=== PATIENT | female | born 1970 | race Caucasian/White ===

== ENCOUNTER → 2016-11-23 | Outpatient (CLI) | payer BC, OTHER ==
[~2016-11-23] MED LIST: ANT125 PO; DESO1TAB7 PO; DOXY100C2 PO; OMEP20CA9 PO; RANI300T2 PO
[2016-11-23 10:02] LABS: BASO % 0.6 %; BASO ABS # 0.03 K/uL (0-0.2); COMPLETE YES; EOS % 2.2 %; HEMATOCRIT 35.5 % (37-47); LYMPH % 24.4 %; LYMPH ABS # 1.33 K/uL (1.2-3.4); MEAN CELL VOLUME 90.3 fL (80-100); MEAN CORPUSCULAR HGB CONC 33.2 g/dl (32-36); MEAN PLATELET VOLUME 10.8 fL (7.4-10.4); MONO % 7.7 %; NEUT % 65.1 %; PLATELET COUNT 227 K/uL (130-400); RED BLOOD COUNT 3.93 M/uL (4.2-5.4); WHITE BLOOD COUNT 5.44 K/uL (4.8-10.8)
[2016-11-23 10:29] LABS: BLOOD UREA NITROGEN 15 mg/dl (7-18); BUN/CREATININE RATIO 23.2 (10-20); C-REACTIVE PROTEIN < 0.29 mg/dl (0-0.29); CALCIUM 8.3 mg/dl (8.5-10.1); CARBON DIOXIDE 26 mmol/L (21-32); CHLORIDE 103 mmol/L (98-107); CREATININE 0.63 mg/dl (0.60-1.20); GLUCOSE 82 mg/dl (70-99); POTASSIUM 3.5 mmol/L (3.5-5.1); SODIUM 139 mmol/L (136-145); URIC ACID 2.7 mg/dl (2.6-7.2)
[2016-11-23 10:40] LABS: ALB/GLOB RATIO 1.2 (0.9-2); ALKALINE PHOSPHATASE 63 U/L (45-117); ALT/SGPT 22 U/L (12-78); AST/SGOT 19 U/L (15-37); RHEUMATOID FACTOR < 10.0 U/mL (0-15)
[2016-11-23 12:57] LABS: LYME DISEASE AB IGG NEG (NEG); LYME DISEASE AB IGM EQUIVOCAL (NEG)
[2016-11-24 12:53] LABS: 18KDIGG BAND NONREACTIVE (NONREACTIVE); 23KDIGG BAND NONREACTIVE (NONREACTIVE); 23KDIGM BAND NONREACTIVE (NONREACTIVE); 28KDIGG BAND NONREACTIVE (NONREACTIVE); 30KDIGG BAND NONREACTIVE (NONREACTIVE); 39KDIGG BAND NONREACTIVE (NONREACTIVE); 39KDIGM BAND NONREACTIVE (NONREACTIVE); 41KDIGG BAND NONREACTIVE (NONREACTIVE); 41KDIGM BAND NONREACTIVE (NONREACTIVE); 45KDIGG BAND NONREACTIVE (NONREACTIVE); 58KDIGG BAND NONREACTIVE (NONREACTIVE); 66KDIGG BAND NONREACTIVE (NONREACTIVE); 93KDIGG BAND NONREACTIVE (NONREACTIVE)
[2016-11-25 01:20] LABS: CYCLIC CITRULLINATED PEPT IGG <16 UNITS (<20)
--- NOTE | 2016-11-29 06:43 | CODING QUERY MEDICAL NECESSITY ---
: 1970 SUPPORTING DIAGNOSIS NEEDED A supporting diagnosis is required for the test/procedure performed on this patient in order for us to be reimbursed by the patient's insurance. Please provide a supporting diagnosis for the following test/procedure listed below next to the test name along with your signature. *If there is no additional diagnosis for this patient that would support the following test/procedure please document that below next to the test/procedure. Test(s)/Procedure(s) that require a supporting diagnosis: DOS: 11/23/16 * Vitamin D, 25-Hydroxy DIAGNOSIS: Provider Signature: Date: Thank you Ely Fitzgerald [facility] Information Management Once completed, please kindly fax back to [phone] For questions please call [phone]
== END | disposition home or self-care (01) ==
LOC: C.LAB1850 08:56
PROVIDERS: ATTEND Family Medicine
DX: R41.3 Other amnesia (principal); M62.89 Other specified disorders of muscle; E55.9 Vitamin D deficiency, unspecified

== ENCOUNTER → 2016-12-04 | Outpatient (CLI) | payer BC, OTHER | END | disposition home or self-care (01) | LOC: C.PAPS 10:32 | PROVIDERS: ATTEND Obstetrics & Gynecology | DX: Z01.419 Encounter for gynecological examination (general) (routine) without abnormal findings (principal) ==

== ENCOUNTER → 2017-03-13 | Outpatient (CLI) | payer BC, OTHER ==
--- NOTE | 2017-03-13 13:48 | DIAGNOSTIC IMAGING REPORT ---
MRI OF THE CERVICAL SPINE WITHOUT IV CONTRAST CLINICAL HISTORY: Cervical radiculopathy. COMPARISON STUDY: CT scan of cervical spine dated 08/10/2014. TECHNIQUE: MRI of the cervical spine is performed utilizing various T1 and T2-weighted sequences in the axial and sagittal planes. IV contrast was not administered for this examination. FINDINGS: Cervical spine: Vertebral body height and alignment are maintained throughout the cervical spine. Normal marrow signal intensity is preserved throughout the visualized bony structures. The atlantodental articulation appears preserved. The spinous processes are intact. Minimal degenerative endplate edema is noted at C5-C6. No destructive bony lesion is seen. Intervertebral discs: Degenerative disc desiccation is seen throughout the cervical spine. No significant loss of height is identified. Spinal cord: The cervical spinal cord is normal in morphology and signal intensity. C2-C3: Unremarkable. C3-C4: Unremarkable. C4-C5: Unremarkable. C5-C6: A posterior disc osteophyte complex eccentric to the right abuts the ventral cord. In conjunction with mild facet arthropathy this causes moderate to severe right neural foraminal stenosis. The left neural foramen is clear. C6-C7: A posterior disc osteophyte complex slightly eccentric to the left abuts the ventral cord. Uncovertebral arthropathy causes minimal left-sided neural foraminal stenosis. C7-T1: Unremarkable. Soft tissues: The prevertebral and paraspinous soft tissues are normal as visualized. Brain parenchyma: Partially imaged brain parenchyma is grossly normal in appearance. IMPRESSION: 1. Cervical spondylosis as above, greatest at C5-C6 and C6-C7. See discussion for detailed level by level analysis. 2. No destructive bony process is seen. Minimal degenerative endplate edema is identified at C5-C6. 3. The cervical spinal cord is normal in morphology and signal intensity. Dictated: 03/13/2017 1:10 PM Transcribed: 03/13/2017 1:47 PM Cong Electronically signed by: Nirmal Salomon M.D. 03/13/2017 1:59 PM Dictated Date/Time: 03/13/2017 1:10 PM
== END | disposition home or self-care (01) ==
LOC: C.MRI 12:01
PROVIDERS: ATTEND Physician Assistant
DX: M47.22 Other spondylosis with radiculopathy, cervical region (principal)

== ENCOUNTER → 2017-06-20 | Outpatient (CLI) | payer BC, OTHER | END | disposition home or self-care (01) | LOC: C.PATHSPEC 11:09 | PROVIDERS: ATTEND Obstetrics & Gynecology | DX: A63.0 Anogenital (venereal) warts (principal); R87.622 Low grade squamous intraepithelial lesion on cytologic smear of vagina (LGSIL) ==

== ENCOUNTER → 2017-12-06 | Outpatient (CLI) | payer OTHER ==
[2017-12-06 15:13] LABS: BASO % 0.4 %; BASO ABS # 0.02 K/uL (0-0.2); COMPLETE YES; EOS % 2.3 %; EOS ABS # 0.13 K/uL (0-0.5); HEMATOCRIT 36.1 % (37-47); HEMOGLOBIN 12.5 g/dL (12.0-16.0); IG# 0.01 K/uL (0.00-0.02); IG% 0.2 %; LYMPH % 31.8 %; LYMPH ABS # 1.76 K/uL (1.2-3.4); MEAN CELL VOLUME 92.3 fL (80-100); MEAN CORPUSCULAR HGB CONC 34.6 g/dl (32-36); MEAN PLATELET VOLUME 10.3 fL (7.4-10.4); MONO % 7.9 %; MONO ABS # 0.44 K/uL (0.11-0.59); NEUT % 57.4 %; NEUT ABS # 3.18 K/uL (1.4-6.5); PLATELET COUNT 165 K/uL (130-400); RED BLOOD COUNT 3.91 M/uL (4.2-5.4); RED CELL DISTRIBUTION WIDTH CV 12.8 % (11.5-14.5); RED CELL DISTRIBUTION WIDTH SD 43.1 fL (36.4-46.3); WHITE BLOOD COUNT 5.54 K/uL (4.8-10.8)
[2017-12-06 15:40] LABS: ALBUMIN 3.9 gm/dl (3.4-5.0); ALT/SGPT 24 U/L (12-78); AST/SGOT 14 U/L (15-37); BLOOD UREA NITROGEN 14 mg/dl (7-18); BUN/CREATININE RATIO 19.9 (10-20); CALCIUM 8.5 mg/dl (8.5-10.1); CARBON DIOXIDE 27 mmol/L (21-32); CHLORIDE 104 mmol/L (98-107); EstGFR CKD-E AfrAm 118.7; EstGFR CKD-E NON AfrAm 102.5; POTASSIUM 3.4 mmol/L (3.5-5.1); SODIUM 136 mmol/L (136-145)
[2017-12-06 15:40] LABS: GLUCOSE 87 mg/dl (70-99)
[2017-12-06 15:50] LABS: ALB/GLOB RATIO 1.1 (0.9-2); ALKALINE PHOSPHATASE 67 U/L (45-117); TOTAL PROTEIN 7.6 gm/dl (6.4-8.2)
[2017-12-06 16:02] LABS: HEPATITIS B SURFACE AG NEG (NEG)
[2017-12-06 16:30] LABS: HEP C IGG 13 YRS+OLDER_RFLX NEG (NEG)
[2017-12-06 18:16] LABS: LYME DISEASE AB IGG NEG (NEG)
[2017-12-06 19:30] LABS: LYME DISEASE AB IGM EQUIVOCAL (NEG)
== END | disposition home or self-care (01) ==
LOC: C.LAB1850 14:38
DX: Z00.00 Encounter for general adult medical examination without abnormal findings (principal); R53.83 Other fatigue; E55.9 Vitamin D deficiency, unspecified

== ENCOUNTER → 2017-12-06 | Outpatient (CLI) | payer OTHER | END | disposition home or self-care (01) | LOC: C.PAPS 15:37 | PROVIDERS: ATTEND Obstetrics & Gynecology | DX: Z12.4 Encounter for screening for malignant neoplasm of cervix (principal); Z11.51 Encounter for screening for human papillomavirus (HPV) ==

== ENCOUNTER → 2017-12-25 | Outpatient (CLI) | payer OTHER | END | disposition home or self-care (01) | LOC: C.PATHSPEC 15:52 | PROVIDERS: ATTEND Obstetrics & Gynecology | DX: N87.0 Mild cervical dysplasia (principal) ==

== ENCOUNTER → 2018-01-18 | Outpatient (CLI) | payer OTHER ==
[~2018-01-18] MED LIST changes: +SINCALIDE INJ 1.4 MCG in SODIUM CHLORIDE 0.9% 100ML 100 ML IV SCH
--- NOTE | 2018-01-18 10:13 | DIAGNOSTIC IMAGING REPORT ---
ABDOMEN COMPLETE (US) HISTORY: Pain. Nausea. ABD PAIN. COMPARISON: None. FINDINGS: Pancreas: The pancreas demonstrates a normal echotexture. Liver: Unremarkable. Gallbladder: No gallbladder wall thickening. No gallstones. CBD: 4 mm Kidneys: No hydronephrosis. Spleen: Normal in size. Aorta: Normal in caliber. IVC: Patent. IMPRESSION: No significant abnormality identified within the within the abdomen. The above report was generated using voice recognition software. It may contain grammatical, syntax or spelling errors. Electronically signed by: Guevara Felix M.D. 01/18/2018 10:12 AM Dictated Date/Time: 01/18/2018 10:11 AM
--- NOTE | 2018-01-18 12:28 | DIAGNOSTIC IMAGING REPORT ---
NUCLEAR MEDICINE HEPATOBILIARY SCAN WITH GALLBLADDER EJECTION FRACTION CLINICAL HISTORY: Abdominal pain. COMPARISON: Abdominal ultrasound January 18, 2018. TECHNIQUE: 5.4 mCi of technetium 99m Choletec IV was injected at 10:15 AM on January 18, 2018. Immediately following injection, imaging of the abdomen was carried out for 60 minutes in the anterior projection. At this time, 1.4 mcg of Sincalide was injected IV as per protocol. Imaging was performed for an additional 45 minutes to estimate a gallbladder ejection fraction. FINDINGS: Hepatic uptake of radiotracer is prompt and homogeneous. Activity is first identified within the common bile duct at 15 minutes. Gallbladder activity is first noted at 15 minutes. Small bowel activity is first noted at 25 minutes. Following injection of sincalide, normal gallbladder emptying was noted within ejection fraction of 80%. Normal is greater than 30-35%. IMPRESSION: 1. Normal hepatobiliary scan. No evidence for acute or chronic cholecystitis. 2. Normal gallbladder ejection fraction of 80%. Electronically signed by: Hank De La Garza M.D. 01/18/2018 12:26 PM Dictated Date/Time: 01/18/2018 12:25 PM
== END | disposition home or self-care (01) ==
LOC: C.ULTR 09:22
PROVIDERS: ATTEND Internal Medicine Gastroenterology
DX: R10.11 Right upper quadrant pain (principal)

== ENCOUNTER → 2018-02-25 | Outpatient (CLI) | payer OTHER ==
[~2018-02-25] MED LIST changes: -SINCALIDE INJ 1.4 MCG in SODIUM CHLORIDE 0.9% 100ML 100 ML IV SCH
[2018-02-25 11:01] LABS: TRANSFERRIN 322 mg/dl (200-360)
[2018-02-28 02:22] LABS: ANA SCREEN TC 249X NEGATIVE (NEGATIVE); ANTI-SS-A <1.0 NEG AI (<1.0 NEG); ANTI-SS-B <1.0 NEG AI (<1.0 NEG); COMPLEMENT C3 TC 44859W 120 MG/DL (90-180); COMPLEMENT C4 TC 44982E 25 MG/DL (16-47)
== END | disposition home or self-care (01) ==
LOC: C.LAB1850 09:18
PROVIDERS: ATTEND Internal Medicine Rheumatology
DX: M25.50 Pain in unspecified joint (principal); Z86.19 Personal history of other infectious and parasitic diseases

== ENCOUNTER 2018-04-12 12:07 | Emergency (ER) | payer OTHER ==
[~2018-04-12] VITALS: Ht 182.9 cm; Wt 72.3 kg
[2018-04-12 12:20] VITALS: TEMP 36.8; Ht 182.9 cm; Wt 72.3 kg
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
[2018-04-12 13:13] VITALS: O2SAT 99
[2018-04-12] MEDS ORDERED: ALBUTEROL HFA 8 GM INHALER INH ONE (13:15)
[2018-04-12] MEDS ORDERED: ONDANSETRON 4MG OD TAB ONE (13:37)
[2018-04-12] MEDS ORDERED: DEXAMETHASONE INJ 10 MG in SYRINGE 0 ML IV STA (13:42)
[2018-04-12] MEDS ORDERED: RACEPINEPHRINE 2.25% NEBU SOLN 0.5 ML VIAL INH STA (13:42)
[2018-04-12] MEDS ORDERED: ONDANSETRON 4MG OD TAB PO STA (13:42)
[2018-04-12] MEDS ORDERED: DEXAMETHASONE **PF** INJ 10 MG/ML VIAL ONE (13:49)
[2018-04-12 13:54] VITALS: PULSE 76; O2SAT 96
[2018-04-12] MEDS ORDERED: DiphenhydrAMINE HCL 50 MG/ML VIAL IV STA (14:21)
[2018-04-12] MEDS ORDERED: FAMOTIDINE IV INJ 20 MG in DEXTROSE 5% 100ML 100 ML IV STA (14:21)
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
[2018-04-12] MEDS ORDERED: PRED50TA PO (15:26)
[2018-04-12] MEDS ORDERED: EPP3/2 IM (15:27)
[2018-04-12 15:45] VITALS: BP 107/76; PULSE 77; O2SAT 98
[2018-04-12] MEDS ORDERED: EPINEPHRINE ADULT AUTO-INJECT 0.3 MG SYR IM STA (16:03)
== END 2018-04-12 16:03 | disposition home or self-care (01) ==
LOC: C.EDB 12:08 → C.EDD 16:03
DX: J45.909 Unspecified asthma, uncomplicated (principal); R06.1 Stridor; Z77.098 Contact with and (suspected) exposure to other hazardous, chiefly nonmedicinal, chemicals